=== PATIENT | male | born 1945 | race Caucasian/White ===

== ENCOUNTER → 2017-01-29 | Outpatient (CLI) | payer MEDICARE ==
[~2017-01-29] MED LIST: ANTACID500 MG PO; ASPIRIN 81MG TA81 MG PO; ASPIRIN325 MG PO; AUGMENTIN 875-1 EACH PO; AZITHROMYCIN250 M1 PO; BENADRYL 50MG C50 MG PO; CARVEDILOL6.25 MG PO; CEFDINIR 300MG300 MG PO; CELEBREX 200MG200 MG PO; CHERATUSSIN DA473 ML PO; CIPRO 500MG TA500 MG PO; COUMADIN5 MG PO; DIAZEPAM10 MG PO; DOXYCYCLINE100 M1 PO; FLOMAX0.4 MG PO; GABAPENTIN300 MG PO; IMODIUM A-D2 M1 PO; LISINOPRIL 5MG T5 MG PO; LORTAB 500 MG-11 TAB PO; PERCOCET 500 MG1 TAB PO; PRAVASTATIN20 MG PO; PRILOSEC20 MG PO; RANITIDINE HCL150 MG PO; REGLAN 10 MG TA10 MG PO; ROCEPHIN 1 GM VI1 GM IV; TYLENOL PM 5001 CAP PO; WARFARIN SODIUM1 MG; WARFARIN SODIUM1 MG PO; WARFARIN2 MG PO; ZANTAC 150150 MG PO
[2017-01-29 13:39] LABS: AMPHETAMINES/METAMPHETAMINES NEGATIVE ng/mL (<1000)
== END ==
LOC: LAB 12:40
PROVIDERS: Nurse Practitioner Family
DX: M54.5 Low back pain (principal); M54.16 Radiculopathy, lumbar region; Z51.81 Encounter for therapeutic drug level monitoring

== ENCOUNTER 2017-08-27 07:12 | Day surgery (SDC) | payer MEDICARE ==
--- NOTE | 2017-08-27 11:42 | Operative Note ---
Removal of Neoplasm Date of procedure: 08/27/17 Pre-op diagnosis: 1. Malignant Neoplasm left chest 3cm 2. malignant neoplasm nose 2cm Post-op diagnosis: Same Surgeon: Timothy Marin Anesthesia type: Lo-Mac Description of procedure: The face and LEFT upper chest were prepped and draped. The eyes were protected with Steri-Strips. The lesion on the nose was marked out and measured 2 cm. The markup was incised and the lesion was excised and submitted. Bleeding was stopped with bipolar cautery. A geometric plastic repair was done with interrupted 4-0 nylon sutures. The lesion on the chest was marked out it measured 3 cm. The markup was incised and the lesion was excised well into the subcutaneous layer and submitted. Flaps were elevated and to assure arrangement geometric plastic repair was done with interrupted 4-0 nylon sutures. Blood loss for all the procedure was less than 10 mL. Dressings were applied and the patient was sent to recovery in good general condition. EBL (ml): 2 Specimens obtained: Same as above at [id number]
[2017-08-27 12:35] VITALS: BP 126/85
== END 2017-08-27 11:22 | disposition home or self-care (01) ==
LOC: SDC 07:12
PROVIDERS: Otolaryngology
PROC: 0HB5XZX Excision of Chest Skin, External Approach, Diagnostic (ICD-10-PCS; principal; 2017-08-27 08:45)
PROC: 0HB1XZX Excision of Face Skin, External Approach, Diagnostic (ICD-10-PCS; principal; 2017-08-27 08:45)
DX: C44.519 Basal cell carcinoma of skin of other part of trunk (principal); C44.311 Basal cell carcinoma of skin of nose

== ENCOUNTER → 2017-08-28 | Outpatient (CLI) | payer MEDICARE ==
--- NOTE | 2017-08-28 11:36 | RADIOLOGY REPORT PS360 ---
EXAM: Barium swallow/esophagram. INDICATION: Dysphasia, difficulty swallowing, food getting stuck ORDERING PHYSICIAN: Lex Jackson MD PATIENT AGE: 72 years COMPARISON: None TECHNIQUE: In the upright position the patient was observed to swallow barium in both the AP and lateral view. The cervical esophagus was examined under fluoroscopy with images obtained. The patient was then placed prone in the right anterior oblique position and was observed to swallow barium with Valsalva technique . FLUOROSCOPY TIME: 2 minutes and 8 seconds FINDINGS: There is a small Zenker's diverticulum projecting off the posterior aspect of the esophagus. The mid esophagus has an unremarkable appearance. There is delayed emptying of the distal esophagus with persistent mucosal irregularity involving the distal aspect of the esophagus just proximal to the GE junction. Although this did somewhat open up on fluoroscopic observation, there was persistent mild narrowing and mucosal irregularity of the distal esophagus. This is approximate 5 cm in length. While this could be due to esophagitis, neoplasm is also a consideration. Endoscopy with biopsy recommended for further evaluation. IMPRESSION: Abnormal barium swallow with persistent irregularity and mild narrowing of the distal esophagus with associated esophageal spasm distally. The mucosal irregularity could be related to esophagitis or neoplasm. Endoscopy with biopsy is suggested for further evaluation
== END ==
LOC: RAD 10:00
DX: R13.10 Dysphagia, unspecified (principal)

== ENCOUNTER → 2017-10-06 | Outpatient (CLI) | payer MEDICARE ==
[~2017-10-06] MED LIST changes: +ACETAMINOPHEN &1 TA1 PO; -LORTAB 500 MG-11 TAB PO; +PRAVASTATIN SOD10 MG PO; +TRAZODONE 50MG50 MG PO
[2017-10-06 08:29] LABS: HEMOGLOBIN 15.5 g/dL (14.1-18.0); LYMPH # 2.3 K/mm3 (0.7-4.5); LYMPH % 20.7 % (10-50)
[2017-10-06 08:40] LABS: BUN 33 mg/dL (7-18)
[2017-10-06 08:42] LABS: GFR (ESTIMATED) 60 ML/MIN (>60)
--- NOTE | 2017-10-07 08:46 | RADIOLOGY REPORT PS360 ---
CT CHEST W/ CONTRAST INDICATION: ESOPHAGEAL CA,DYSPHAGIA,PULMONARY NODULES ORDERING PHYSICIAN: Tom Vargas MD PATIENT AGE: 72 years COMPARISON: 02/04/2017 TECHNIQUE: Axial images are obtained with 75 mL's Isovue-370 . Sagittal and coronal reformatted images are reviewed as well. FINDINGS: There is mild dilatation of the esophagus with contrast present in the esophagus throughout its length. There is thickening and irregularity of the distal one third of the esophagus measuring approximate 6 cm in length consistent with esophageal neoplasm. There is a 17 x 13 mm soft tissue density adjacent to the posterior aspect of the distal esophagus probably related to a small paraesophageal lymph node. No mediastinal or hilar adenopathy. There is a small precarinal lymph node measuring 16 x 10 mm unchanged. Normal heart size. No evidence of pericardial effusion. There are innumerable varying sized bilateral pulmonary nodules consistent with metastatic foci. These have developed since the previous exam of 02/04/2017.. The previously described nodular opacities of the lungs in the right apex, right upper lobe posteriorly and along the right major fissure are unchanged. There are centrilobular emphysematous changes with scattered areas of fibrosis. No pleural effusion. Pulmonary arteries are prominent consistent with pulmonary arterial hypertension There has been interval development of mild wedging T12 with some sclerosis of the T12 vertebral body. This could be neoplastic in nature. IMPRESSION: 1. Irregular thickened distal esophagus consistent with esophageal cancer with mild dilatation of the mid and upper esophagus consistent with partial obstruction. There is some nodularity posterior to the distal aspect of the esophagus and may be related to a paraesophageal lymph node versus direct extension into the paraesophageal adventitia. No mediastinal or hilar adenopathy. 2. Interval development of extensive pulmonary metastasis. 3. Mild wedging of T12 vertebral body with sclerotic appearance suspicious for metastatic disease. 4. Centrilobular emphysematous changes
--- NOTE | 2017-10-07 08:53 | RADIOLOGY REPORT PS360 ---
CT ABD PELVIS W/ CONTRAST CLINICAL INDICATION: ESOPHAGEAL CA,DYSPHAGIA,PULMONARY NODULES ORDERING PHYSICIAN: Tom Vargas MD PATIENT AGE: 72 years COMPARISON: None TECHNIQUE: Axial images obtained with sagittal and coronal reformats. PROCEDURE: Oral Contrast: Redicat IV Contrast: 75 mL Isovue-370 performed in conjunction with the chest CT. FINDINGS: Distal esophagus is thickened with irregular lumen consistent with esophageal neoplasm. Mildly enlarged lymph nodes are present in the retrocrural region and retroperitoneum. The retrocrural lymph nodes measure up to 2.2 x 1.6 cm on the right. Small nodes are present in the portal region as well. These measure up to 1.2 x 1 cm. No focal liver lesion is evident. Spleen and adrenal glands and pancreas are unremarkable. There has been a prior cholecystectomy. Atheromatous changes involving the aorta with mild fusiform dilatation of the distal abdominal aorta at 3.2 cm. There is dilatation of the proximal common iliacs measuring up to 2 cm on the right and 7 cm on the left. No evidence of intestinal obstruction or free air. Unremarkable appendix. No focal pelvic or abdominal inflammatory changes evident. Mild stranding of the perinephric renal fat on the left nonobstructing bilateral nephrolithiasis measuring up to 6 mm on the left and 4 mm on the right. There is a sclerotic focus involving the left femur at the intertrochanteric region and may be due to a bone island. Degenerative changes are present in the lumbar spine. IMPRESSION: 1. Thickened distal esophagus with irregular lumen consistent with esophageal neoplasm. 2. Retrocrural and retroperitoneal adenopathy. 3. No evidence of hepatic or adrenal metastasis 4. Fusiform abdominal aortic aneurysm involves the bifurcation measuring up to 3 cm
== END ==
LOC: RAD 08:10
PROVIDERS: Nurse Practitioner
DX: C15.5 Malignant neoplasm of lower third of esophagus (principal); Z03.89 Encounter for observation for other suspected diseases and conditions ruled out; R13.10 Dysphagia, unspecified; R91.8 Other nonspecific abnormal finding of lung field
CPT/HCPCS: Q9967

== ENCOUNTER → 2017-10-19 | Outpatient (CLI) | payer MEDICARE | LOC: LAB 14:43 | DX: C15.9 Malignant neoplasm of esophagus, unspecified (principal); Z79.01 Long term (current) use of anticoagulants ==

== ENCOUNTER → 2017-10-20 | Day surgery (SDC) | payer MEDICARE ==
--- NOTE | 2017-10-20 13:04 | Operative Note ---
Endoscopy Report Date: 10/20/17 Preoperative diagnosis: Esophageal cancer, feeding problem Procedure Type of procedure: 20 Croatian pull-type PEG tube placement Indications: Patient is a 72-year-old white male whom I had recently seen as a consultation for dysphagia. 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 He's had imaging which suggests stage IV disease with metastatic lesions. He has seen oncology. Patient has been unable to maintain nutrition and he was sent back for surgical consultation yesterday for percutaneous gastrostomy tube placement. Consent was obtained and patient was taken to same-day surgery endoscopy procedure room. He was positioned in a supine position. Adequate intravenous sedation was achieved with anesthesia titration of propofol. Olympus endoscope was inserted via the oropharynx and advanced through the esophagus. In the distal esophagus he had a fungating irregular lesion which was nearly obstructing the distal esophagus at this point. Location of the lumen was difficult but ultimately the endoscope was able to be carefully advanced into the stomach. Stomach was insufflated. On the anterior abdomen there was good light reflex. Abdomen was prepped and draped. Chloroacetic was infiltrated. Approximately 1 cm incision was made and catheter was inserted percutaneously through the incision under endoscopic visualization into the gastric lumen. Needle was removed and looped guidewire was inserted through the catheter which was then grasped with the through the endoscope. Endoscope was withdrawn while maintaining traction on the looped guidewire. Looped guidewire was secured to the 20 Croatian pull-type PEG tube. Traction was then placed on the looped guidewire 2 through the oropharynx and esophagus to exit at the skin site. There was good hemostasis. Antibiotic ointment was applied and the skin site and dressing. It was secured at approximately the 3 cm nupur. Tube was cut to the appropriate length and tube feedings infusing apparatus was attached. Completion endoscopy revealed some minor oozing from the esophageal cancer. However the PEG tube was in good position antrum. Pylorus was traversed and the duodenal bulb appeared unremarkable. Stomach was desufflated and the endoscope was withdrawn. There were no immediate complications. Findings 1. nearly obstructing esophageal carcinoma Follow-Up Follow-Up: He may begin tube feeds in 24-48 hours. I'll see him in the office in one to 2 weeks. at 1309
[2017-10-20 15:30] VITALS: BP 108/56
== END ==
LOC: SDC 11:50
PROVIDERS: Surgery
PROC: 0DH63UZ Insertion of Feeding Device into Stomach, Percutaneous Approach (ICD-10-PCS; principal; 2017-10-20 12:30)
DX: C15.9 Malignant neoplasm of esophagus, unspecified (principal); R63.3 Feeding difficulties
CPT/HCPCS: J1956; S0077